=== PATIENT | female | born 1990 | race Caucasian/White ===

== ENCOUNTER 2020-02-03 12:41 | Inpatient (IN) | payer OTHER ==
[~2020-02-03] VITALS: Ht 172.7 cm; Wt 78.0 kg
[~2020-02-03 12:41] MED LIST: IBUP-1222 PO; OXYC-302 PO
[2020-02-12] MEDS ORDERED: NEWBORN KIT ONE ×2 (04:43→05:18)
[2020-02-12] MEDS ORDERED: OXYTOCIN 30U/ 0.9% NaCL 500ML 500 ML ONE ×2 (05:18→12:56)
[2020-02-12] MEDS ORDERED: MISOPROSTOL 200 MCG TABLET ONE (05:18)
[2020-02-12] MEDS ORDERED: LACTATED RINGERS 1,000 ML IV SCH (05:30)
[2020-02-12] MEDS ORDERED: ONDANSETRON 2MG/ML, 2ML IVPush PRN (05:30)
[2020-02-12] MEDS ORDERED: FENTANYL PF 100 MCG/2ML IV PRN (05:30)
[2020-02-12] MEDS ORDERED: OXYTOCIN 30U/ 0.9% NaCL 500ML 500 ML IV ONE (05:30)
[2020-02-12] MEDS ORDERED: ALUMINUM/MAG/SIMETHICONE 30 ML UDC PO PRN (05:30)
[2020-02-12] MEDS ORDERED: FENTANYL PF 100 MCG/2ML IVPush PRN (05:30)
[2020-02-12] MEDS ORDERED: TERBUTALINE 1 MG/ML, 1ML SQ PRN (05:30)
[2020-02-12] MEDS ORDERED: SODIUM CHLORIDE FLUSH 10ML SYR IVF PRN (05:30)
[2020-02-12] MEDS ORDERED: TERBUTALINE 1 MG/ML, 1ML IVPush PRN (05:30)
[2020-02-12] MEDS ORDERED: MISOPROSTOL 25 MCG TABLET VG PRN (05:30)
[2020-02-12] MEDS ORDERED: D5%-LACTATED RINGERS 1,000 ML IV SCH (05:30)
[2020-02-12 05:45] VITALS: BP 111/60
[2020-02-12 05:49] LABS: BASOPHILS % (AUTO) 1 % (0-1); EOSINOPHILS % (AUTO) 1 % (1-7); LYMPHOCYTES % (AUTO) 20 % (22-44); MEAN CORPUSCULAR HEMOGLOBIN 31.6 pg (27.0-34.8); MEAN CORPUSCULAR HGB CONC 34.4 g/dL (32.4-35.8); MONOCYTES % (AUTO) 8 % (2-9); NEUTROPHILS % (AUTO) 70 % (42-75); PLATELET COUNT 194 x10^3/uL (130-400); RED BLOOD COUNT 4.51 x10^6/uL (3.82-5.3); RED CELL DISTRIBUTION WIDTH 13.1 % (9.6-15.2)
[2020-02-12] MEDS ORDERED: OXYTOCIN 30U/ 0.9% NaCL 500ML 500 ML IV PRN (06:30)
[2020-02-12 07:09] LABS: MD SCAN
[2020-02-12] MEDS ORDERED: HYDROcodone/APAP 10/325 MG TABLET ONE (12:55)
[2020-02-12] MEDS: HYDROcodone/APAP 10/325 MG TABLET PO PRN ×3 (13:03→21:36)
[2020-02-12] MEDS: OXYTOCIN 30U/ 0.9% NaCL 500ML 500 ML IV SCH ×2 (13:22→23:30)
[2020-02-12] MEDS ORDERED: METHYLERGONOVINE 0.2 MG/ML IM PRN (13:30)
[2020-02-12] MEDS ORDERED: MISOPROSTOL 200 MCG TABLET PR PRN (13:30)
[2020-02-12] MEDS ORDERED: CARBOPROST TROMETHAMINE 250 MCG/ML, 1ML IM PRN (13:30)
[2020-02-12] MEDS ORDERED: ACETAMINOPHEN 325 MG TABLET PO PRN ×2 (13:30)
[2020-02-12] MEDS ORDERED: DIPH,PERTUSS(ACELL),TET VAC/PF NC IM-VACC PRN (13:30)
[2020-02-12] MEDS ORDERED: SIMETHICONE 80 MG CHEW TAB PO PRN (13:30)
[2020-02-12] MEDS ORDERED: HYDROcodone/APAP 5/325 TABLET PO PRN ×2 (13:30)
[2020-02-12] MEDS ORDERED: IBUPROFEN 600 MG TABLET ONE (13:38)
[2020-02-12] MEDS: IBUPROFEN 600 MG TABLET PO PRN ×2 (13:39→20:12)
[2020-02-12] MEDS ORDERED: PREN1TAB60 PO (13:51)
[2020-02-12 14:45] VITALS: BP 115/76
[2020-02-12] MEDS: DOCUSATE 100 MG CAPSULE PO PRN (20:12)
[2020-02-12 20:22] VITALS: BP 106/69
[2020-02-12 20:49] LABS: MEAN CORPUSCULAR HEMOGLOBIN 31.6 pg (27.0-34.8); MEAN CORPUSCULAR HGB CONC 34.2 g/dL (32.4-35.8); MEAN PLATELET VOLUME 10.1 fL (7.4-10.4); PLATELET COUNT 206 x10^3/uL (130-400); RED BLOOD COUNT 4.34 x10^6/uL (3.82-5.3); RED CELL DISTRIBUTION WIDTH 12.7 % (9.6-15.2)
[2020-02-12 21:49] LABS: MD YES
[2020-02-12 22:04] LABS: <PLATELET ESTIMATE> ADEQUATE; <RBC MORPHOLOGY> NORMAL; BAND#(MANUAL) 0.56 x10^3/uL; BANDS%(MANUAL) 3 % (0-7); EOS#(MANUAL) 0.56 x10^3/uL (0.0-0.4); EOS% (MANUAL) 3 % (1-7); LYMPH#(MANUAL) 3.33 x10^3/uL (1-3.4); LYMPHS% (MANUAL) 18 % (22-44); MONOS#(MANUAL) 0.93 x10^3/uL (0.3-2.7); MONOS% (MANUAL) 5 % (2-9); SEG#(MANUAL) 13.14 x10^3/uL (1.8-6.8); SEGS% (MANUAL) 71 % (42-75)
[2020-02-12 22:05] LABS: LARGE PLATELETS 1+
[2020-02-12 23:49] VITALS: BP 99/67
[2020-02-13] MEDS: IBUPROFEN 600 MG TABLET PO PRN ×2 (02:33→09:07)
[2020-02-13 04:00] VITALS: BP 100/68
[2020-02-13 07:54] VITALS: BP 114/76
[2020-02-13] MEDS: HYDROcodone/APAP 10/325 MG TABLET PO PRN (08:00)
[2020-02-13] MEDS: DOCUSATE 100 MG CAPSULE PO PRN (08:00)
[2020-02-13] MEDS ORDERED: PRENATAL VIT/IRON/FA 1 EACH TABLET PO SCH (09:00)
[2020-02-13] MEDS: OXYTOCIN 30U/ 0.9% NaCL 500ML 500 ML IV SCH (11:06)
== END 2020-02-13 13:01 | disposition home or self-care (01) | DRG 807 ==
LOC: MERGE 12:41 → LDIP 02-12 05:07 → 2NW 02-12 14:34
PROVIDERS: ADMIT Obstetrics & Gynecology Maternal & Fetal Medicine; ATTEND Obstetrics & Gynecology Maternal & Fetal Medicine
PROC: 10E0XZZ Delivery of Products of Conception, External Approach (ICD-10-PCS; principal; 2020-02-12)
PROC: 0KQM0ZZ Repair Perineum Muscle, Open Approach (ICD-10-PCS; 2020-02-12)
DX: O48.0 Post-term pregnancy (principal); Z37.0 Single live birth; Z3A.41 41 weeks gestation of pregnancy; O70.1 Second degree perineal laceration during delivery; Z20.828 Contact with and (suspected) exposure to other viral communicable diseases
CPT/HCPCS: 36415; 85025; 86592; 86850; 86900; 87635; G0378; J2590; J7120